=== PATIENT | female | born 1970 | race Caucasian/White ===

== ENCOUNTER 2017-12-19 15:28 | Inpatient (IN) | payer OTHER ==
[2017-12-19 15:42] VITALS: BMI 28.8
[2017-12-19] MEDS ORDERED: Sodium Chloride 0.9% 1,000 ML IV STA (15:46)
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
[2017-12-19 16:34] LABS: BASO # 0.01 K/mm3 (0.0-2.0); BASO % 0.1 % (0.0-3.0); EOS # 0.1 (0.0-0.7); EOS % 1.1 % (1.5-5.0); GRAN # 3.66 (1.4-6.5); GRAN % 48.6 % (50.0-68.0); HEMOGLOBIN 11.7 g/dL (12.0-16.0); LYMPH # 3.3 (1.2-3.4); LYMPH % 43.6 % (22.0-35.0); MEAN CELL VOLUME 84.2 fl (80.0-105.0); MEAN CORPUSCULAR HEMOGLOBIN 27.2 pg (25.0-35.0); MEAN CORPUSCULAR HGB CONC 32.3 g/dl (31.0-37.0); MEAN PLATELET VOLUME 9.6 fl (7.0-11.0); MONO # 0.5 (0.1-0.6); MONO % 6.6 % (1.0-6.0); RBC 4.3 10^6/uL (3.5-6.1); RED CELL DISTRIBUTION WIDTH 14.3 % (11.5-14.5); WHITE BLOOD COUNT 7.5 10^3/ul (4.5-11.0)
[2017-12-19 16:45] LABS: ALB/GLOB RATIO 1.4 (1.1-1.8); ALBUMIN 3.7 g/dL (3.0-4.8); ALT/SGPT 30 U/L (7-56); AST/SGOT 18 U/L (14-36); BLOOD UREA NITROGEN 12 mg/dL (7-21); CALCIUM 8.9 mg/dL (8.4-10.5); GFR AFRICAN-AMERICAN > 60; GFR NON-AFRICAN AMERICAN > 60
[2017-12-19 16:56] LABS: B-TYPE NATRIURETIC PEPTIDE 48.6 pg/mL (0-450); TROPONIN I < 0.01 ng/mL
--- NOTE | 2017-12-19 19:08 | CT ---
PROCEDURE: CT HEAD WITHOUT CONTRAST. HISTORY: headache, syncope COMPARISON: 09/10/2015 TECHNIQUE: Axial computed tomography images were obtained through the head/brain without intravenous contrast. Radiation dose: Total exam DLP = 1023.70 mGy-cm. This CT exam was performed using one or more of the following dose reduction techniques: Automated exposure control, adjustment of the mA and/or kV according to patient size, and/or use of iterative reconstruction technique. FINDINGS: HEMORRHAGE: No intracranial hemorrhage. BRAIN: No mass effect or edema. No atrophy or chronic microvascular ischemic changes. VENTRICLES: Unremarkable. No hydrocephalus. CALVARIUM: Unremarkable. PARANASAL SINUSES: Unremarkable as visualized. No significant inflammatory changes. MASTOID AIR CELLS: Unremarkable as visualized. No inflammatory changes. OTHER FINDINGS: None. IMPRESSION: Normal CT of the Head. No intracranial mass, hemorrhage or evidence of acute infarct.
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
--- NOTE | 2017-12-20 00:25 | CARD ---
APPROVED REPORT EKG Measurement Heart [id number] <Conclusion> Normal sinus rhythm Normal ECG
[2017-12-20 06:18] LABS: BASO # 0.01 K/mm3 (0.0-2.0); BASO % 0.1 % (0.0-3.0); EOS # 0.2 (0.0-0.7); EOS % 2.1 % (1.5-5.0); GRAN # 3.2 (1.4-6.5); GRAN % 41.5 % (50.0-68.0); HEMOGLOBIN 11.7 g/dL (12.0-16.0); LYMPH # 3.8 (1.2-3.4); LYMPH % 49.6 % (22.0-35.0); MEAN CELL VOLUME 85.9 fl (80.0-105.0); MEAN CORPUSCULAR HEMOGLOBIN 27.1 pg (25.0-35.0); MEAN CORPUSCULAR HGB CONC 31.5 g/dl (31.0-37.0); MONO # 0.5 (0.1-0.6); MONO % 6.7 % (1.0-6.0); RBC 4.32 10^6/uL (3.5-6.1); RED CELL DISTRIBUTION WIDTH 14.6 % (11.5-14.5); WHITE BLOOD COUNT 7.7 10^3/ul (4.5-11.0)
[2017-12-20 07:06] LABS: BLOOD UREA NITROGEN 9 mg/dL (7-21)
[2017-12-20 07:07] LABS: GFR AFRICAN-AMERICAN > 60; GFR NON-AFRICAN AMERICAN > 60
[2017-12-20 07:08] LABS: CALCIUM 8.5 mg/dL (8.4-10.5)
[2017-12-20 07:09] LABS: ALB/GLOB RATIO 1.4 (1.1-1.8); ALBUMIN 3.6 g/dL (3.0-4.8); ALT/SGPT 25 U/L (7-56); AST/SGOT 28 U/L (14-36)
[2017-12-20 07:10] LABS: HDL CHOLESTEROL 47 mg/dL (29-60); LDL CHOLESTEROL 89 mg/dL (0-129)
--- NOTE | 2017-12-20 10:39 | CON ---
DATE: 12/20/2017 CARDIOLOGY CONSULTATION HISTORY: The patient is a 47-year-old woman who presents with a syncopal episode with prodromal symptoms of feeling heat in her chest. The patient's past medical history is free of cardiac disease. No previous seizure disorder. No previous syncope in the past. The patient's medications at home include oxycodone, ibuprofen. The patient is currently fasting for Ramadan. No angina symptoms noted. No dyspnea. The patient's past medical history is free of diabetes mellitus. No hypertension. No previous myocardial infarction. SOCIAL HISTORY: Does not smoke. REVIEW OF SYSTEMS: Free of cardiac disease. PHYSICAL EXAMINATION: VITAL SIGNS: Blood pressure is 103/65, the heart rate is in the 70s. NECK: Negative JVD. LUNGS: Without rales. HEART: Reveals S1, S2. EXTREMITIES: Without edema. LABORATORY DATA: EKG is within normal limits. Hemoglobin is 11.1. Chemistries: BUN and creatinine are unremarkable. Troponins are negative x2. IMPRESSION: 1. Syncope. 2. No cardiac cause of syncope identified. 3. Anemia. 4. Atypical chest pain. 5. Weakness. PLAN: Given these findings, we will obtain an echocardiogram to evaluate LV function, awaiting echo findings. We will monitor on telemetry for 24 hours. Raleigh Caceres MD
--- NOTE | 2017-12-20 10:47 | RAD ---
HISTORY: chest pain COMPARISON: 10/21/2014 FINDINGS: LUNGS: No active pulmonary disease. PLEURA: No significant pleural effusion identified, no pneumothorax apparent. CARDIOVASCULAR: Normal. OSSEOUS STRUCTURES: No significant abnormalities. VISUALIZED UPPER ABDOMEN: Normal. OTHER FINDINGS: None. IMPRESSION: No active disease.
[2017-12-20 12:37] LABS: URINE BILIRUBIN NEGATIVE (NEGATIVE); URINE BLOOD TRACE-LYSED (NEGATIVE); URINE GLUCOSE (UA) NEGATIVE (NEGATIVE); URINE LEUKOCYTE ESTERASE NEGATIVE Leu/uL (NEGATIVE); URINE PROTEIN NEGATIVE mg/dL (<30 mg/dL); URINE UROBILINOGEN 0.2 E.U./dL (<1 E.U./dL)
[2017-12-20 12:39] LABS: URINE APPEARANCE CLEAR (CLEAR); URINE COLOR YELLOW (YELLOW)
[2017-12-20 12:49] LABS: URINE BACTERIA MANY (NEG); URINE EPITHELIAL CELLS MANY /hpf (0-5); URINE WBC 0 - 2 /hpf (0-6)
--- NOTE | 2017-12-20 13:51 | CARD ---
APPROVED REPORT EKG Measurement Heart [id number] <Conclusion> Normal sinus rhythm Cannot rule out Inferior infarct, age undetermined Abnormal ECG
--- NOTE | 2017-12-20 15:04 | CP.PCM.CON ---
History of Present Illness - History of Present Illness History of Present Illness: Mrs. Rios is a 47-year-old woman with no significant past medical history who was at work, had sudden left sided chest pain with flushing and had a syncopal episode. When she woke up, she was not confused, she did not have tongue biting , urinary incontinence or other associated symptoms of fatigue or irritability. She is back to baseline. Review of Systems - Review of Systems All systems: reviewed and no additional remarkable complaints except Past Patient History - Infectious Disease Hx of Infectious Diseases: None - Tetanus Immunizations Tetanus Immunization: Unknown - Past Social History Smoking Status: Never Smoked - CARDIAC Hx Cardiac Disorders: No Hx Angina: No Hx Cardia Arrhythmia: No Hx Circulatory Problems: No Hx Congestive Heart Failure: No Hx Heart Murmur: No Hx Heart Transplant: No Hx Hypercholesterolemia: No Hx Hypertension: No Hx Internal Defibrillator: No Hx Mitral Valve Prolapse: No Hx Pacemaker: No Hx Peripheral Edema: No Hx Peripheral Vascular Disease: No - PULMONARY Hx Respiratory Disorders: Yes Hx Asthma: Yes Hx Bronchitis: No Hx Chronic Obstructive Pulmonary Disease (COPD): No Hx Emphysema: No Hx Pneumonia: No Hx Respiratory Aspiration: No Hx Respiratory Tract Infection: No Hx Sleep Apnea: No Hx Tuberculosis: No - NEUROLOGICAL Hx Neurological Disorder: Yes Hx Alzheimer's Disease: No HX Cerebrovascular Accident: No Hx Dementia: No Hx Dizziness: Yes Hx Meningitis: No Hx Migraine: Yes Hx Parkinson's Disease: No Hx Seizures: No Hx Transient Ischemic Attacks (TIA): No - HEENT Hx HEENT Problems: No Hx Blind: No Hx Cataracts: No Hx Deafness: No Hx Difficulty Chewing: No Hx Epistaxis: No Hx Glaucoma: No Hx Macular Degeneration: No - RENAL Hx Chronic Kidney Disease: No Hx Dialysis: No Hx Kidney Stones: No Hx Neurogenic Bladder: No Hx Pyelonephritis: No Hx Renal (Kidney) Cancer: No Hx Renal Failure: No - ENDOCRINE/METABOLIC Hx Endocrine Disorders: No Hx Adrenal Cancer: No Hx Diabetes Insipidus: No Hx Diabetes Mellitus Type 1: No Hx Diabetes Mellitus Type 2: No Hx Hyperthyroidism: No Hx Hypothyroidism: No Hx Systemic Lupus Erythematosus: No - HEMATOLOGICAL/ONCOLOGICAL Hx Blood Disorders: No Hx AIDS: No Hx Anemia: No Hx Cancer: No Hx Chemotherapy: No Hx Cirrhosis: No Hx Hemophilia: No Hx Hepatitis A: No Hx Hepatitis B: No Hx Hepatitis C: No Hx Human Immunodeficiency Virus (HIV): No Hx Metastesis: No Hx Shingles: No Hx Sickle Cell Disease: No Hx Unexplained Bleeding: No - INTEGUMENTARY Hx Dermatological Problems: No Hx Basil Cell: No Hx Eczema: No Hx Melanoma: No Hx Psoriasis: No Hx Squamous Cell: No - MUSCULOSKELETAL/RHEUMATOLOGICAL Hx Musculoskeletal Disorders: Yes (Torn rotator cuff) Hx Arthritis: No Hx Back Pain: No Hx Degenerative Joint Disease: No Hx Falls: No Hx Fractures: No Hx Gout: No Hx Herniated Disk: No Hx Myasthenia Gravis: No Hx Osteoarthritis: No Hx Osteomyelitis: No Hx Osteoporosis: No Hx Rhabdomyolysis: No Hx Spinal Stenosis: No Hx Unsteady Gait: No - GASTROINTESTINAL Hx Gastrointestinal Disorders: No Hx Colostomy: No Hx Crohn's Disease: No Hx Diverticulitis: No Hx Gall Bladder Disease: No Hx Gastroesophageal Reflux: No Hx Ileostomy: No Hx Liver Failure: No Hx Pancreatitis: No HX Swallowing Problems: No Hx Ulcer: No - GENITOURINARY/GYNECOLOGICAL Hx Genitourinary Disorders: No Hx Hematuria: No Hx Incontinence: No Hx Sexually Transmitted Disorders: No Hx Urinary Tract Infection: No - PSYCHIATRIC Hx Psychophysiologic Disorder: No Hx Anxiety: No Hx Bipolar Disorder: No Hx Depression: No Hx Emotional Abuse: No Hx Hallucinations: No Hx Panic Symptoms: No Hx Paranoia: No Hx Post Traumatic Stress Disorder: No Hx Psychosis: No Hx Physical Abuse: No Hx Schizophrenia: No Hx Sexual Abuse: No - SURGICAL HISTORY Hx Surgeries: Yes (rotator cuff repair) Hx Amputation: No Hx Appendectomy: No Hx Cardiac Catheterization: No Hx Cholecystectomy: No Hx Coronary Stent: No Hx Gastric Bypass Surgery: No Hx Hysterectomy: No Hx Joint Replacement: No Hx Kidney Transplant: No Hx Liver Transplant: No Hx Mastectomy: No Hx Musculoskeletal Surgery: Yes Hx Open Heart Surgery: No Hx Orthopedic Surgery: Yes Hx Splenectomy: No Hx Valve Replacement: No - ANESTHESIA Hx Anesthesia: Yes Hx Anesthesia Reactions: No Hx Malignant Hyperthermia: No Meds Allergies/Adverse Reactions: Allergies Allergy/AdvReac Type Severity Reaction Status Date / Time oxycodone Allergy RASH Verified 12/20/17 03:15 tramadol Allergy RASH Verified 12/20/17 03:14 - Medications Medications: Current Medications Aspirin (Ecotrin) 81 mg PO DAILY [facility] Last Admin: 12/20/17 11:41 Dose: 81 mg Heparin Sodium (Porcine) (Heparin) 5,000 units SC Q12 [facility] PRN Reason: Protocol Last Admin: 12/20/17 11:40 Dose: 5,000 units Pantoprazole Sodium (Protonix Ec Tab) 40 mg PO 0600 [facility] Physical Exam - Neurological Exam Neurological exam: Alert, CN II-XII Intact, Normal Gait, Oriented x3, Reflexes Normal Results - Vital Signs Recent Vital Signs: Last Vital Signs Temp 98.0 F 12/20/17 12:00 Pulse 66 12/20/17 12:00 Resp 16 12/20/17 12:00 BP 97/62 L 12/20/17 12:00 Pulse Ox 99 12/20/17 06:00 - Labs Result Diagrams: 12/20/17 05:30 12/20/17 05:30 Labs: Laboratory Results - last 24 hr 12/20/17 12/20/17 12/20/17 05:30 05:30 05:30 WBC 7.7 RBC 4.32 Hgb 11.7 L Hct 37.1 MCV 85.9 MCH 27.1 MCHC 31.5 RDW 14.6 H Plt Count 424 MPV 10.0 Gran % 41.5 L Lymph % (Auto) 49.6 H Town[place] % (Auto) 6.7 H Eos % (Auto) 2.1 Baso % (Auto) 0.1 Gran # 3.20 Lymph # (Auto) 3.8 H [place] # (Auto) 0.5 Eos # (Auto) 0.2 Baso # (Auto) 0.01 Sodium 140 Potassium 4.0 Chloride 105 Carbon Dioxide 27 Anion Gap 12 BUN 9 Creatinine 0.5 L Est GFR ( Amer) > 60 Est GFR (Non-Af Amer) > 60 Random Glucose 100 Hemoglobin A1c 6.0 Calcium 8.5 Phosphorus 3.8 Magnesium 1.9 Total Bilirubin < 0.1 L AST 28 ALT 25 Alkaline Phosphatase 87 Troponin I Total Protein 6.2 Albumin 3.6 Globulin 2.6 Albumin/Globulin Ratio 1.4 Triglycerides 193 H Cholesterol 180 LDL Cholesterol Direct 89 HDL Cholesterol 47 TSH 3rd Generation Urine Color Urine Appearance Urine pH Ur Specific [place] Urine Protein Urine Glucose (UA) Urine Ketones Urine Blood Urine Nitrate Urine Bilirubin Urine Urobilinogen Ur Leukocyte Esterase Urine RBC Urine WBC Ur Epithelial Cells Urine Bacteria Urine Other 12/20/17 12/20/17 12/20/17 06:00 06:30 11:33 WBC RBC Hgb Hct MCV MCH MCHC RDW Plt Count MPV Gran % Lymph % (Auto) [place] % (Auto) Eos % (Auto) Baso % (Auto) Gran # Lymph # (Auto) [place] # (Auto) Eos # (Auto) Baso # (Auto) Sodium Potassium Chloride Carbon Dioxide Anion Gap BUN Creatinine Est GFR ( Amer) Est GFR (Non-Af Amer) Random Glucose Hemoglobin A1c Calcium Phosphorus Magnesium Total Bilirubin AST ALT Alkaline Phosphatase Troponin I < 0.01 < 0.01 Total Protein Albumin Globulin Albumin/Globulin Ratio Triglycerides Cholesterol LDL Cholesterol Direct HDL Cholesterol TSH 3rd Generation 1.06 Urine Color Urine Appearance Urine pH Ur Specific [place] Urine Protein Urine Glucose (UA) Urine Ketones Urine Blood Urine Nitrate Urine Bilirubin Urine Urobilinogen Ur Leukocyte Esterase Urine RBC Urine WBC Ur Epithelial Cells Urine Bacteria Urine Other 12/20/17 12:30 WBC RBC Hgb Hct MCV MCH MCHC RDW Plt Count MPV Gran % Lymph % (Auto) [place] % (Auto) Eos % (Auto) Baso % (Auto) Gran # Lymph # (Auto) [place] # (Auto) Eos # (Auto) Baso # (Auto) Sodium Potassium Chloride Carbon Dioxide Anion Gap BUN Creatinine Est GFR ( Amer) Est GFR (Non-Af Amer) Random Glucose Hemoglobin A1c Calcium Phosphorus Magnesium Total Bilirubin AST ALT Alkaline Phosphatase Troponin I Total Protein Albumin Globulin Albumin/Globulin Ratio Triglycerides Cholesterol LDL Cholesterol Direct HDL Cholesterol TSH 3rd Generation Urine Color Yellow Urine Appearance Clear Urine pH 6.0 Ur Specific [place] 1.020 Urine Protein Negative Urine Glucose (UA) Negative Urine Ketones Negative Urine Blood Trace-lysed H Urine Nitrate Negative Urine Bilirubin Negative Urine Urobilinogen 0.2 Ur Leukocyte Esterase Negative Urine RBC 1 - 3 Urine WBC 0 - 2 Ur Epithelial Cells Many Urine Bacteria Many Urine Other Uyeast Assessment & Plan (1) Syncope Assessment and Plan: Likely neurocardiogenic in origin. Continue cardiac work-up. Clinically, she appears normal. There was no suspicion for seizure, but an EEG can be done for syncope work-up as an outpatient. Continue cardiac monitoring, fluids, and conservative management. Thank you. Status: Acute Priority: High
--- NOTE | 2017-12-20 15:13 | CARD ---
APPROVED REPORT EKG Measurement Heart [id number] <Conclusion> Normal sinus rhythm Normal ECG
--- NOTE | 2017-12-20 16:19 | CP.PCM.PN ---
<Sigifredo Eden - Last Filed: 12/20/17 16:23> Subjective - Date & Time of Evaluation Date of Evaluation: 12/20/17 Time of Evaluation: 16:17 - Subjective Subjective: Patient seen and examined at bedside this morning. Patient in no acute distress and resting comfortably. Patient denies any chest pain, palpitations, fevers, chills, nausea, vomiting, changes in vision, syncopal episodes, abdominal pain or any other complaints. Objective - Vital Signs/Intake and Output Vital Signs (last 24 hours): Temp Pulse Resp BP Pulse Ox 98.0 F 66 16 97/62 L 99 12/20/17 12:00 12/20/17 12:00 12/20/17 12:00 12/20/17 12:00 12/20/17 06:00 Intake and Output: 12/20/17 12/20/17 06:59 18:59 Intake Total 480 Balance 480 - Medications Medications: Current Medications Aspirin (Ecotrin) 81 mg PO DAILY [facility] Last Admin: 12/20/17 11:41 Dose: 81 mg Heparin Sodium (Porcine) (Heparin) 5,000 units SC Q12 [facility] PRN Reason: Protocol Last Admin: 12/20/17 11:40 Dose: 5,000 units Pantoprazole Sodium (Protonix Ec Tab) 40 mg PO 0600 [facility] - Labs Labs: 12/20/17 05:30 12/20/17 05:30 - Head Exam Head Exam: ATRAUMATIC, NORMAL INSPECTION, NORMOCEPHALIC - Eye Exam Eye Exam: EOMI, Normal appearance, PERRL Pupil Exam: NORMAL ACCOMODATION - ENT Exam ENT Exam: Mucous Membranes Moist, Normal Oropharynx - Respiratory Exam Respiratory Exam: Clear to Ausculation Bilateral, NORMAL BREATHING PATTERN - Cardiovascular Exam Cardiovascular Exam: REGULAR RHYTHM, +S1, +S2 - GI/Abdominal Exam GI & Abdominal Exam: Soft, Normal Bowel Sounds - Extremities Exam Extremities Exam: Full ROM, Normal Inspection. absent: Pedal Edema - Back Exam Back Exam: NORMAL INSPECTION - Neurological Exam Neurological Exam: Alert, Awake, CN II-XII Intact, Oriented x3 - Psychiatric Exam Psychiatric exam: Normal Affect, Normal Mood - Skin Skin Exam: Dry, Intact, Normal Color Assessment and Plan - Assessment and Plan (Free Text) Assessment: 47 year old female with past medical history of gastritis admitted for chest pain r/o acs and syncopal episode. Plan: 1. Chest pain r/o acs -EKG: nsr @65bpm -D-dimer <200 -Troponin (-) x3. -Sublingual nitroglycerin PRN for symptomatic pain -Aspirin. -Lipid panel:(Triglycerides: 193 remainder within normal limits) -Last cardiac cath and echocardiogram normal per Patient (2009) -Echo taken. Pending final read. -Carotid u/s taken. Pending final read. -Cardiology consulted. Help appreciated. 2. Syncopal episode - Minutes loss of conciousness witnessed by coworker. -Neuro checks q4 -Head ct negative -Neurology consulted and recommend Outpatient EEG. PPX -Protonix -Heparin 5000 units q12 Discussed with attending Dr. Laughlin. Sigifredo Eden, PGY1 <Cesar Laughlin - Last Filed: 12/21/17 18:39> Objective - Vital Signs/Intake and Output Vital Signs (last 24 hours): Temp Pulse Resp BP Pulse Ox 98.4 F 77 21 105/69 100 12/21/17 11:51 12/21/17 14:00 12/21/17 11:51 12/21/17 11:51 12/21/17 05:49 Attending/Attestation - Attestation I have personally seen and examined this patient.: Yes I have fully participated in the care of the patient.: Yes I have reviewed all pertinent clinical information, including history, physical exam and plan: Yes Notes (Text): 12/21/17 18:37 Attending note; Patient seen and examined with resident. Patient is a 47-year-old female with a past medical history of palpitations is admitted after chest pressure and syncopal episode at work. Patient has been fasting for . Patient was treated with IV fluids. CT head is negative. Initial EKG is negative. Cardiac enzymes negative. Cardiology and neurology evaluation appreciated. Carotid Doppler/echocardiogram ordered. Currently patient is asymptomatic. Monitor closely. Upon discharge the patient will follow-up with SUSHMA Mata.
--- NOTE | 2017-12-20 22:21 | US ---
PROCEDURE: Bilateral carotid duplex US HISTORY: Carotid stenosis PHYSICIAN(S): Raleigh Laird MD. TECHNIQUE: Duplex sonography and color-flow Doppler were used to evaluate the carotid bifurcations and limited segments of the vertebral arteries bilaterally. FINDINGS: There is mild to moderate smooth heterogeneous plaque noted at the carotid bifurcations bilaterally. The peak systolic velocity in the proximal right internal carotid artery is 106 cm/sec. This corresponds to a 40-59% proximal right ICA stenosis. Normal systolic velocities are noted in the proximal right external carotid artery. There is antegrade flow in the right vertebral artery. The peak systolic velocity in the proximal left internal carotid artery is 139 cm/sec. This corresponds to a 40-59% proximal left ICA stenosis. Normal systolic velocities are noted in the proximal left external carotid artery. There is antegrade flow in the left vertebral artery. IMPRESSION: 1. Bilateral 40-59% proximal ICA stenoses. 2. Antegrade flow in both vertebral arteries.
[2017-12-20] MEDS ORDERED: Apap-Butalbital-Caffeine 325-50-40mg Tab PO ONE (22:46)
[2017-12-21 05:49] VITALS: O2SAT 100
[2017-12-21] MEDS ORDERED: Pantoprazole 40 mg EC Tab PO SCH (06:00)
[2017-12-21 06:19] LABS: BASO # 0.01 K/mm3 (0.0-2.0); BASO % 0.1 % (0.0-3.0); EOS # 0.1 (0.0-0.7); EOS % 1.4 % (1.5-5.0); GRAN # 3.61 (1.4-6.5); GRAN % 42.3 % (50.0-68.0); HEMOGLOBIN 12.5 g/dL (12.0-16.0); LYMPH # 4.5 (1.2-3.4); LYMPH % 52.2 % (22.0-35.0); MEAN CELL VOLUME 85.3 fl (80.0-105.0); MEAN CORPUSCULAR HEMOGLOBIN 27.4 pg (25.0-35.0); MEAN CORPUSCULAR HGB CONC 32.1 g/dl (31.0-37.0); MONO # 0.3 (0.1-0.6); RBC 4.57 10^6/uL (3.5-6.1); RED CELL DISTRIBUTION WIDTH 14.4 % (11.5-14.5); WHITE BLOOD COUNT 8.5 10^3/ul (4.5-11.0)
[2017-12-21 06:30] LABS: ALB/GLOB RATIO 1.4 (1.1-1.8); ALBUMIN 3.9 g/dL (3.0-4.8); ALT/SGPT 30 U/L (7-56); AST/SGOT 28 U/L (14-36); BLOOD UREA NITROGEN 10 mg/dL (7-21); CALCIUM 8.7 mg/dL (8.4-10.5); GFR AFRICAN-AMERICAN > 60; GFR NON-AFRICAN AMERICAN > 60
[2017-12-21] MEDS ORDERED: Apap-Butalbital-Caffeine 325-50-40mg Tab PO PRN (08:54)
[2017-12-21] MEDS ORDERED: Sodium Chloride 0.9% 500 ML IV STA (09:31)
[2017-12-21] MEDS ORDERED: Albuterol HFA 90 mcg/actuation (8 g) IH PRN (09:42)
[2017-12-21] MEDS ORDERED: Albuterol HFA 90 mcg/actuation (8 g) IH ONE (09:45)
[2017-12-21] MEDS ORDERED: Albuterol 0.083% Inhal Sol (2.5 mg/3 mL) UD IH PRN (09:46)
[2017-12-21] MEDS ORDERED: Albuterol 0.083% Inhal Sol (2.5 mg/3 mL) UD IH ONE (10:00)
--- NOTE | 2017-12-21 10:37 | PN ---
DATE: 12/21/2017 CARDIOLOGY FOLLOWUP SUBJECTIVE: The patient is without dizziness. No shortness of breath. PHYSICAL EXAMINATION: VITAL SIGNS: Blood pressure is 92/53, the heart rate is in the 90s. NECK: Negative JVD. LUNGS: Without rales. HEART: Reveals S1, S2. EXTREMITIES: Without edema. LABORATORY DATA: Troponins are negative x2. Hemoglobin is stable. IMPRESSION: 1. Status post syncope. 2. No arrhythmias noted. 3. Atypical chest pain. 4. Anemia. PLAN: Given these findings, we will need to review the echocardiogram today. Raleigh Caceres MD
[2017-12-21 11:51] VITALS: BP 105/69; RESP 21; TEMP 98.4
[2017-12-21] MEDS ORDERED: Magnesium 2 gm/50 ml NS 2 GM/50 ML BAG IVPB ONE (12:10)
[2017-12-21] MEDS ORDERED: Valproate 500 MG in Sodium Chloride 0.9% 100 ML IVPB ONE (12:11)
--- NOTE | 2017-12-21 13:15 | CP.PCM.DIS ---
Provider - Provider Date of Admission: 12/19/17 19:23 Attending physician: Cesar Laughlin MD [facility] Time Spent in preparation of Discharge (in minutes): 45 Hospital Course - Lab Results Lab Results: Most Recent Lab Values WBC 8.5 10^3/ul (4.5-11.0) 12/21/17 05:30 RBC 4.57 10^6/uL (3.5-6.1) 12/21/17 05:30 Hgb 12.5 g/dL (12.0-16.0) 12/21/17 05:30 Hct 39.0 % (36.0-48.0) 12/21/17 05:30 MCV 85.3 fl (80.0-105.0) 12/21/17 05:30 MCH 27.4 pg (25.0-35.0) 12/21/17 05:30 MCHC 32.1 g/dl (31.0-37.0) 12/21/17 05:30 RDW 14.4 % (11.5-14.5) 12/21/17 05:30 Plt Count 432 10^3/uL (120.0-450.0) 12/21/17 05:30 MPV 10.0 fl (7.0-11.0) 12/21/17 05:30 Gran % 42.3 % (50.0-68.0) L 12/21/17 05:30 Lymph % (Auto) 52.2 % (22.0-35.0) H 12/21/17 05:30 [place] % (Auto) 4.0 % (1.0-6.0) 12/21/17 05:30 Eos % (Auto) 1.4 % (1.5-5.0) L 12/21/17 05:30 Baso % (Auto) 0.1 % (0.0-3.0) 12/21/17 05:30 Gran # 3.61 (1.4-6.5) 12/21/17 05:30 Lymph # (Auto) 4.5 (1.2-3.4) H 12/21/17 05:30 [place] # (Auto) 0.3 (0.1-0.6) 12/21/17 05:30 Eos # (Auto) 0.1 (0.0-0.7) 12/21/17 05:30 Baso # (Auto) 0.01 K/mm3 (0.0-2.0) 12/21/17 05:30 D-Dimer, Quantitative < 200 ng/mL (0-243) 12/19/17 16:15 Sodium 140 mmol/L (132-148) 12/21/17 05:30 Potassium 4.2 mmol/L (3.6-5.0) 12/21/17 05:30 Chloride 102 mmol/L (98-107) 12/21/17 05:30 Carbon Dioxide 28 mmol/L (21-33) 12/21/17 05:30 Anion Gap 15 (10-20) 12/21/17 05:30 BUN 10 mg/dL (7-21) 12/21/17 05:30 Creatinine 0.6 mg/dl (0.7-1.2) L 12/21/17 05:30 Est GFR ( Amer) > 60 12/21/17 05:30 Est GFR (Non-Af Amer) > 60 12/21/17 05:30 Random Glucose 94 mg/dL (70-110) 12/21/17 05:30 Hemoglobin A1c 6.0 % (4.2-6.5) 12/20/17 05:30 Calcium 8.7 mg/dL (8.4-10.5) 12/21/17 05:30 Phosphorus 4.0 mg/dL (2.5-4.5) 12/21/17 05:30 Magnesium 1.8 mg/dL (1.7-2.2) 12/21/17 05:30 Total Bilirubin 0.1 mg/dL (0.2-1.3) L 12/21/17 05:30 AST 28 U/L (14-36) 12/21/17 05:30 ALT 30 U/L (7-56) 12/21/17 05:30 Alkaline Phosphatase 93 U/L (38-126) 12/21/17 05:30 Total Creatine Kinase 72 U/L (35-230) 12/19/17 16:15 Troponin I < 0.01 ng/mL 12/21/17 06:30 NT-Pro-B Natriuret Pep 48.6 pg/mL (0-450) 12/19/17 16:15 Total Protein 6.6 g/dL (5.8-8.3) 12/21/17 05:30 Albumin 3.9 g/dL (3.0-4.8) 12/21/17 05:30 Globulin 2.7 gm/dL 12/21/17 05:30 Albumin/Globulin Ratio 1.4 (1.1-1.8) 12/21/17 05:30 Triglycerides 193 mg/dL (35-160) H 12/20/17 05:30 Cholesterol 180 mg/dL (130-200) 12/20/17 05:30 LDL Cholesterol Direct 89 mg/dL (0-129) 12/20/17 05:30 HDL Cholesterol 47 mg/dL (29-60) 12/20/17 05:30 TSH 3rd Generation 1.06 mIU/mL (0.46-4.68) 12/20/17 06:30 Urine Color Yellow (YELLOW) 12/20/17 12:30 Urine Appearance Clear (CLEAR) 12/20/17 12:30 Urine pH 6.0 (4.7-8.0) 12/20/17 12:30 Ur Specific [place] 1.020 (1.005-1.035) 12/20/17 12:30 Urine Protein Negative mg/dL (<30 mg/dL) 12/20/17 12:30 Urine Glucose (UA) Negative mg/dL (NEGATIVE) 12/20/17 12:30 Urine Ketones Negative mg/dL (NEGATIVE) 12/20/17 12:30 Urine Blood Trace-lysed (NEGATIVE) H 12/20/17 12:30 Urine Nitrate Negative (NEGATIVE) 12/20/17 12:30 Urine Bilirubin Negative (NEGATIVE) 12/20/17 12:30 Urine Urobilinogen 0.2 E.U./dL (<1 E.U./dL) 12/20/17 12:30 Ur Leukocyte Esterase Negative Yash/uL (NEGATIVE) 12/20/17 12:30 Urine RBC 1 - 3 /hpf (0-2) 12/20/17 12:30 Urine WBC 0 - 2 /hpf (0-6) 12/20/17 12:30 Ur Epithelial Cells Many /hpf (0-5) 12/20/17 12:30 Urine Bacteria Many (NEG) 12/20/17 12:30 Urine Other Uyeast 12/20/17 12:30 - Hospital Course Hospital Course: 47 year with a past medical history of gastritis comes in today after reporting chest pain and a syncopal episode. The patient reports sitting down at work when all of she had a left sided chest pain that radiated to the sternal area. Shortly thereafter she had a syncopal episode witnessed by her cowoker that lasted approximately 2 minutes. She denies any urinary or fecal incontinence. She reports this being her first syncopal episode. She denies any changes in the distance of ambulation or needing extra pillows at night to sleep. Upon examination she denies any fevers, chills, chest pain, shortness of breath, abdominal pain, dizziness, or any other complaints. Last echo 2010: normal per patient Last Cardiac cath 2010: Normal per patient Past medical history: gastritis Medications: Pantoprazole Allergies: Denies Past surgical history: Rotator cuff (2011) 3 c sections PMD: [facility]. [facility] Course: Imagin.Carotid and Vertebral Duplex: bilateral 40-59% proximal ICA stenoses; anterograde flow in both vertebral arteries. 2.Chest portable xray:no active disease 3.Head ct w/o contrast: noraml head ct. no intracranial mass, hemorrhage or evidence of acute infarct. 4.EKG: NORMAL sinus rhythm, cannot rule out inferior infarct, age undetermined Discharge Instructions: Discharge Exam - Head Exam Head Exam: ATRAUMATIC, NORMAL INSPECTION, NORMOCEPHALIC Discharge Plan - Follow Up Plan Condition: FAIR Disposition: HOME/ ROUTINE Referrals: Adolfo REYNOSO,EDGARDO Benítez [Primary Care Provider] -
--- NOTE | 2017-12-21 16:08 | CARD ---
APPROVED REPORT EXAM: Two-dimensional and M-mode echocardiogram with Doppler and color Doppler. INDICATION Syncope 2D DIMENSIONS Left Atrium (2D)3.5 (1.6-4.0cm)IVSd0.9 (0.7-1.1cm) LVDd4.2 (3.9-5.9cm)PWd0.9 (0.7-1.1cm) LVDs2.9 (2.5-4.0cm)FS (%) 29.9 % LVEF (%)57.5 (>50%) M-Mode DIMENSIONS Aortic Root2.20 (2.2-3.7cm)Aortic Cusp Exc.1.40 (1.5-2.0cm) Aortic Valve AoV Peak Vldbpmwi410.0cm/Tanika Peak GR.13mmHg Mitral Valve MV E Wmgzdbks64.2cm/sMV A Emwzzffj82.7cm/sE/A ratio1.2 TDI E/Lateral E'0.0E/Medial E'0.0 Tricuspid Valve TR Peak [id number]/sRAP [id number] Peak Gr.22mmHg [id number] LEFT VENTRICLE The left ventricle is normal size. There is normal left ventricular wall thickness. The left ventricular function is normal. The left ventricular ejection fraction is within the normal range. There is normal LV segmental wall motion. The left ventricular diastolic function is normal. RIGHT VENTRICLE The right ventricle is normal size. There is normal right ventricular wall thickness. The right ventricular systolic function is normal. ATRIA The left atrium size is normal. The right atrium size is normal. AORTIC VALVE The aortic valve is normal in structure. No aortic regurgitation is present. There is no aortic valvular stenosis. MITRAL VALVE The mitral valve is normal in structure. Mitral regurgitation is trace. There is no mitral valve stenosis. TRICUSPID VALVE The tricuspid valve is normal in structure. There is trace to mild tricuspid regurgitation. PULMONIC VALVE The pulmonary valve is normal in structure. GREAT VESSELS The aortic root is normal in size. The IVC is normal in size and collapses >50% with inspiration. PERICARDIAL EFFUSION There is no pericardial effusion. <Conclusion> The left ventricle is normal size. There is normal left ventricular wall thickness. The left ventricular function is normal. The left ventricular ejection fraction is within the normal range. There is normal LV segmental wall motion. The left ventricular diastolic function is normal.
--- NOTE | 2017-12-21 16:11 | CP.PCM.PN ---
<Sigifredo Eden - Last Filed: 12/21/17 16:22> Subjective - Date & Time of Evaluation Date of Evaluation: 12/21/17 Time of Evaluation: 16:09 - Subjective Subjective: Patient seen and examined at bedside. Per nursing no acute events occurred overnight. Patient does reports some chest pressure upon examination. She is tolerating diet without any complaints. Patient denies any fevers, chills, nausea, vomiting, changes in vision, abdominal pain, or any other complaints. Objective - Vital Signs/Intake and Output Vital Signs (last 24 hours): Temp Pulse Resp BP Pulse Ox 98.4 F 63 21 105/69 100 12/21/17 11:51 12/21/17 11:51 12/21/17 11:51 12/21/17 11:51 12/21/17 05:49 - Medications Medications: Current Medications Albuterol Sulfate (Albuterol 0.083% Inhal Niki (2.5 Mg/3 Ml) Ud) 2.5 mg IH [id number] PRN PRN Reason: Cough and congestion Aspirin (Ecotrin) 81 mg PO DAILY [facility] Last Admin: 12/21/17 09:18 Dose: 81 mg Heparin Sodium (Porcine) (Heparin) 5,000 units SC Q12 CASSANDRA PRN Reason: Protocol Last Admin: 12/21/17 09:17 Dose: 5,000 units Magnesium Oxide (Mag-Ox) 400 mg PO BID [facility] Pantoprazole Sodium (Protonix Ec Tab) 40 mg PO 0600 [facility] Last Admin: 12/21/17 05:27 Dose: 40 mg - Head Exam Head Exam: ATRAUMATIC, NORMAL INSPECTION, NORMOCEPHALIC - Eye Exam Eye Exam: Normal appearance, PERRL Pupil Exam: NORMAL ACCOMODATION - ENT Exam ENT Exam: Mucous Membranes Moist, Normal Oropharynx - Respiratory Exam Respiratory Exam: Clear to Ausculation Bilateral, NORMAL BREATHING PATTERN. absent: Prolonged Expiratory Phase, Respiratory Distress - Cardiovascular Exam Cardiovascular Exam: REGULAR RHYTHM, +S1, +S2 - GI/Abdominal Exam GI & Abdominal Exam: Soft, Normal Bowel Sounds. absent: Rigid, Hyperactive Bowel Sounds - Extremities Exam Extremities Exam: Full ROM, Normal Inspection. absent: Joint Swelling, Pedal Edema - Back Exam Back Exam: NORMAL INSPECTION. absent: CVA tenderness (L), CVA tenderness (R), paraspinal tenderness - Neurological Exam Neurological Exam: Alert, Awake, CN II-XII Intact, Normal Gait, Oriented x3 - Psychiatric Exam Psychiatric exam: Normal Affect, Normal Mood - Skin Skin Exam: Dry, Intact, Normal Color Assessment and Plan - Assessment and Plan (Free Text) Assessment: 47 year old female with past medical history of gastritis admitted for chest pain r/o acs and syncopal episode. Plan: 1. Chest pain r/o acs -EKG: nsr @65bpm -D-dimer <200 -Troponin (-) x3. -Sublingual nitroglycerin PRN for symptomatic pain -Aspirin. -Lipid panel:(Triglycerides: 193 remainder within normal limits) -Last cardiac cath and echocardiogram normal per Patient (2009) -Echo taken. Pending final read. -Carotid u/s taken Bilateral 40-59% proximal ICA stenosis, anterograde flow -Cardiology consulted. Help appreciated. 2. Syncopal episode - Minutes loss of conciousness witnessed by coworker. -Neuro checks q4 -Head ct negative -Brain MRI ordered .Will f/u with results. -Spinal MRI ordered .Will f/u with results. -Neurology consulted and recommend Outpatient EEG. PPX -Protonix -Heparin 5000 units q12 Discussed with attending Dr. Laughlin. Sigifredo Eden, PGY1 <Cesar Laughlin - Last Filed: 12/21/17 18:42> Objective - Vital Signs/Intake and Output Vital Signs (last 24 hours): Temp Pulse Resp BP Pulse Ox 98.4 F 77 21 105/69 100 12/21/17 11:51 12/21/17 14:00 12/21/17 11:51 12/21/17 11:51 12/21/17 05:49 Attending/Attestation - Attestation I have personally seen and examined this patient.: Yes I have fully participated in the care of the patient.: Yes I have reviewed all pertinent clinical information, including history, physical exam and plan: Yes Notes (Text): 12/21/17 18:40 Attending note; Patient seen and examined with resident. Patient is a 47-year-old female with a past medical history of palpitations is admitted after chest pressure and syncopal episode at work. Patient has been fasting for Ramadan. Patient was treated with IV fluids. CT head is negative. Initial EKG is negative. Cardiac enzymes x4 negative. Cardiology and neurology evaluation appreciated. Carotid Doppler without significant stenosis. Continue aspirin and Echocardiogram showed normal ejection fraction. Case discussed with cardiology in detail. Patient had an episode of headache. Evaluated by neurologist. Got 1 dose of Depakote and Decadron. MRI of the head and neck ordered by neurology. Pending neurological workup. Upon discharge the patient will follow-up with SUSHMA Mata.
[2017-12-21 16:26] VITALS: PULSE 77
[2017-12-21] MEDS ORDERED: Magnesium Oxide 400 mg Tab UD PO SCH (18:00)
== END 2017-12-21 17:33 | disposition left against medical advice (07) | DRG 142 ==
LOC: ED 15:28 → ERH 19:23 → 2RNO 20:52 → OBSVTOIN 12-21 14:11
PROVIDERS: ADMIT Internal Medicine; ATTEND Internal Medicine
DX: R55 Syncope and collapse (principal); D64.9 Anemia, unspecified; R07.89 Other chest pain; R53.1 Weakness; J45.909 Unspecified asthma, uncomplicated; K21.9 Gastro-esophageal reflux disease without esophagitis; Z98.891 History of uterine scar from previous surgery; Z88.6 Allergy status to analgesic agent; Z88.5 Allergy status to narcotic agent

== ENCOUNTER 2018-05-20 22:14 | Emergency (ER) | payer OTHER ==
[2018-05-20 22:54] VITALS: BMI 27.9
[2018-05-20 22:56] VITALS: RESP 18; TEMP 98; O2SAT 97
[2018-05-20] MEDS ORDERED: Levalbuterol 1.25 MG/3 ML Inhal Soln UD IH STA (23:28)
--- NOTE | 2018-05-20 23:45 | ED PDOC ---
Arrival/HPI - General Chief Complaint: Cough, Cold, Congestion Time Seen by Provider: 05/20/18 22:22 Historian: Patient - History of Present Illness Narrative History of Present Illness (Text): 05/20/18 23:41 Estrella Rios is a 47 year old female, whose past medical history includes asthma, who presents to the Emergency department complaining of cough and asthma exacerbation. Patient states she has been experiencing chest tightness, difficulty breathing, and wheezing. Patient reports she has been using her inhaler and nebulizer treatments with no significant improvement. Patient denies any fever, headache, dizziness, back pain, or any other complaints. Patient states she feels anxious and shaky after taking her nebulizer at home. PMD [place] Symptom Onset: Gradual Symptom Course: Unchanged Activities at Onset: Light Context: Home Past Medical History - Provider Review Nursing Documentation Reviewed: Yes - Infectious Disease Hx of Infectious Diseases: None - Tetanus Immunization Tetanus Immunization: Unknown - Past Medical History Past Medical History: No Previous - Cardiac Hx Cardiac Disorders: No - Pulmonary Hx Respiratory Disorders: Yes Hx Asthma: Yes - Neurological Hx Neurological Disorder: Yes Hx Dizziness: Yes Hx Migraine: Yes - HEENT Hx HEENT Disorder: No - Renal Hx Renal Disorder: No - Endocrine/Metabolic Hx Endocrine Disorders: No - Hematological/Oncological Hx Blood Disorders: No - Integumentary Hx Dermatological Disorder: No - Musculoskeletal/Rheumatological Hx Musculoskeletal Disorders: Yes (Torn rotator cuff) - Gastrointestinal Hx Gastrointestinal Disorders: No - Genitourinary/Gynecological Hx Genitourinary Disorders: No - Psychiatric Hx Psychophysiologic Disorder: No Hx Substance Use: No - Past Surgical History Past Surgical History: Non-Contributing - Surgical History Hx Musculoskeletal Surgery: Yes Hx Orthopedic Surgery: Yes - Anesthesia Hx Anesthesia: Yes Hx Anesthesia Reactions: No Hx Malignant Hyperthermia: No - Suicidal Assessment Feels Threatened In Home Enviroment: No Family/Social History - Physician Review Nursing Documentation Reviewed: Yes Family/Social History: Unknown Family HX Smoking Status: Never Smoked Hx Alcohol Use: No Hx Substance Use: No Hx Substance Use Treatment: No Allergies/Home Meds Allergies/Adverse Reactions: Allergies oxycodone Allergy (Verified 05/20/18 22:54) RASH tramadol Allergy (Verified 05/20/18 22:54) RASH Home Medications: Home Meds Medication Instructions Recorded Confirmed Albuterol HFA [Ventolin HFA 90 06/13/15 06/13/15 mcg/actuation (8 g)] Omeprazole 20 mg PO BID 06/13/15 06/13/15 metroNIDAZOLE [Flagyl] 500 mg PO BID 04/03/16 04/03/16 Review of Systems - Physician Review All systems were reviewed & negative as marked: Yes - Review of Systems Constitutional: absent: Fevers Respiratory: Cough, Wheezing Cardiovascular: Chest Pain (+chest tightness) Gastrointestinal: absent: Vomiting Musculoskeletal: absent: Back Pain Neurological: absent: Headache Physical Exam Vital Signs Reviewed: Yes Vital Signs Temp Pulse Resp BP Pulse Ox 05/20/18 22:55 98.0 F 92 H 18 107/71 97 Temperature: Afebrile Blood Pressure: Normal Pulse: Regular Respiratory Rate: Normal Appearance: Positive for: Well-Appearing, Non-Toxic, Comfortable Pain Distress: None Mental Status: Positive for: Alert and Oriented X 3 - Systems Exam Head: Present: Atraumatic, Normocephalic Pupils: Present: PERRL Extroacular Muscles: Present: EOMI Conjunctiva: Present: Normal Mouth: Present: Moist Mucous Membranes Neck: Present: Normal Range of Motion Respiratory/Chest: Present: Clear to Auscultation, Good Air Exchange, Decreased Breath Sounds (+decreased BS at the bases). No: Respiratory Distress, Accessory Muscle Use, Wheezes, Rales, Rhonchi Cardiovascular: Present: Regular Rate and Rhythm, Normal S1, S2. No: Murmurs Abdomen: No: Tenderness, Distention, Peritoneal Signs Back: Present: Normal Inspection Upper Extremity: Present: Normal Inspection. No: Cyanosis, Edema Lower Extremity: Present: Normal Inspection. No: Edema Neurological: Present: GCS=15, CN II-XII Intact, Speech Normal Skin: Present: Warm, Dry, Normal Color. No: Rashes Psychiatric: Present: Alert, Oriented x 3, Normal Insight, Normal Concentration Medical Decision Making ED Course and Treatment: 05/20/18 23:41 Impression: 47 year old female complaining of cough and asthma exacerbation. Plan: -- EKG -- Chest X-ray -- Xoponex -- Reassess and disposition Progress Notes: EKG : NSR at 88 bpm, no acute ST changes. CXR : +small R pleural effusion, possible infiltrates to b/l lower lobes. On reevaluation, patient reports improvement of symptoms, denies any CP or SOB, she is no longer coughing. On exam, patient remains awake alert and oriented 3 in no acute distress. Neck is supple, lungs mild decrease BS at the bases otherwise are clear to auscultation, cardiac regular rate and rhythm, repeat neuro exam shows no focal findings. Advised to follow up with primary care physician in 1-2 days without fail. Advised to take medication as prescribed. Return to the emergency room at any time for any new or worsening symptoms. Patient states she fully agrees with and understands discharge instructions. States that she agrees with the plan and disposition. Verbalized and repeated discharge instructions and plan. I have given the patient opportunity to ask any additional questions. - RAD Interpretation Radiology Orders: 05/20/18 23:28 CHEST TWO VIEWS (PA/LAT) [RAD] Stat - Medication Orders Current Medication Orders: Discontinued Medications Levalbuterol HCl (Xopenex) 1.25 mg IH STAT STA Stop: 05/20/18 23:29 Last Admin: 05/20/18 23:38 Dose: 1.25 mg - PA / LINUX [employer] ADMINISTRATOR / Resident Statement MD/DO has reviewed & agrees with the documentation as recorded. - Scribe Statement The provider has reviewed the documentation as recorded by the Sandro Lindo Provider Scribe Attestation: All medical record entries made by the Pratimaibblanche were at my direction and personally dictated by me. I have reviewed the chart and agree that the record accurately reflects my personal performance of the history, physical exam, medical decision making, and the department course for this patient. I have also personally directed, reviewed, and agree with the discharge instructions and disposition. Disposition/Present on Arrival - Present on Arrival Any Indicators Present on Arrival: No History of DVT/PE: No History of Uncontrolled Diabetes: No Urinary Catheter: No History of Decub. Ulcer: No History Surgical Site Infection Following: None - Disposition Have Diagnosis and Disposition been Completed?: Yes Diagnosis: Asthma, Pneumonia Disposition: HOME/ ROUTINE Disposition Time: 00:40 Patient Plan: Discharge Patient Problems: Current Active Problems Problem Status Onset Asthma Acute Pneumonia Acute Condition: STABLE Discharge Instructions (ExitCare): Pneumonia in Adults, Asthma, Adult (DC) Additional Instructions: Thank you for letting us take care of you today. You were treated for asthma, cough, possible pneumonia. The emergency medical care you received today was directed at your acute symptoms. If you were prescribed any medication, please fill it and take as directed. It may take several days for your symptoms to resolve. Return to the Emergency Department if your symptoms worsen, do not improve, or if you have any other problems. Please contact your doctor in 2 days for re-evaluation and follow up. Bring any paperwork you were given at discharge with you along with any medications you are taking to your follow up visit. Our treatment cannot replace ongoing medical care by a primary care provider (PCP) outside of the emergency department. Thank you for allowing the [facility] team to be part of your care today. If you had an X-Ray : A Radiologist will review the ED reading if any change in treatment is needed we will contact you. Prescriptions: Azithromycin [Zithromax] 250 mg PO DAILY #4 tab Guaifenesin [Adult Tussin Chest Congestion] 200 mg PO Q6H PRN #200 ml PRN Reason: Cough Levalbuterol HCl [Xopenex] 1.25 mg IH QID PRN #100 vial.neb PRN Reason: Cough predniSONE [predniSONE Tab] 40 mg PO DAILY #8 tab Referrals: Valentine Hair MD [Primary Care Provider] - Follow up with primary Forms: Nulu (Thai), WORK NOTE
[2018-05-21 00:43] VITALS: BP 118/62; PULSE 95
--- NOTE | 2018-05-21 10:36 | CARD ---
APPROVED REPORT Date of service: 05/20/2018 EKG Measurement Heart [id number] <Conclusion> Normal sinus rhythm Normal ECG
--- NOTE | 2018-05-21 10:52 | RAD ---
Date of service: 05/21/2018 HISTORY: Cough COMPARISON: 12/19/2017 TECHNIQUE: Chest PA and lateral FINDINGS: LINES AND TUBES: None. LUNG AND PLEURA: The lungs are well inflated and clear. There is confluent airspace disease in the left lower lobe. No pleural effusion or pneumothorax. HEART AND MEDIASTINUM: The heart is not enlarged. No aortic atherosclerotic calcification present. The hilar and mediastinal contours are within normal limits. SKELETAL STRUCTURES: The bony structures are within normal limits for the patient's age. VISUALIZED UPPER ABDOMEN: Normal. OTHER FINDINGS: None. IMPRESSION: Airspace disease in the left lower lobe may represent subsegmental atelectasis however superimposed pneumonia cannot be excluded. Follow-up after medical management is recommended to ensure complete resolution.
== END 2018-05-21 01:32 | disposition home or self-care (01) ==
LOC: ED 22:14
DX: J45.909 Unspecified asthma, uncomplicated (principal); J18.9 Pneumonia, unspecified organism

== ENCOUNTER 2018-09-20 21:04 | Emergency (ER) | payer OTHER | END 2018-09-21 00:20 | disposition home or self-care (01) | LOC: ED 09-21 00:20 ==